=== PATIENT | female | born 1995 | race Caucasian/White ===

== ENCOUNTER 2020-08-11 10:55 | Emergency (ER) | payer OTHER, SELFPAY ==
--- NOTE | 2020-08-11 10:58 | ED.URI ---
HPI - URI/Sore Throat General Chief Complaint: Upper Respiratory Infection Stated Complaint: upper respiratory Time Seen by Provider: 08/11/20 11:00 Source: patient and RN notes reviewed History of Present Illness HPI Narrative: Patient is a 25-year-old female who presents the urgent care with complaints of a stuffy nose, sore throat, congestion and cough. Patient states that she was with her cousin on Saturday who had a sinus infection and on Saturday she woke up with the symptoms. Patient states she is also had a headache and has been taking ibuprofen and using throat spray for her symptoms. Patient denies of any known exposure to strep or Covid. Denies of any fevers, nausea, vomiting. No other acute complaints. No acute distress noted. Patient aware of the plan of care. Some parts of this dictation were generated by voice recognition software and may contain typographical and/or grammatical inaccuracies. Related Data Home Medications Medication Instructions Recorded Confirmed No Home Medications 08/11/20 08/11/20 Allergies Allergy/AdvReac Type Severity Reaction Status Date / Time No Known Allergies Allergy Verified 08/11/20 11:09 Review of Systems Review of Systems: Narrative: CONSTITUTIONAL: Denies fever, chills, or sweats. EYES: Denies visual changes, redness, or discharge. ENT: Reports of sinus congestion, postnasal drainage, sore throat CARDIOVASCULAR: Denies chest pain, palpitations, or edema. RESPIRATORY: Reports of cough without dyspnea GASTROINTESTINAL: Denies abdominal pain, nausea, vomiting, or diarrhea. GENITOURINARY: Denies dysuria or hematuria. SKIN: Denies rash or itching. MUSCULOSKELETAL: Denies back pain, joint pain, or myalgia. NEUROLOGIC: Reports of intermittent headache All other systems reviewed are negative, except as documented in HPI. [facility] Past Medical History Medical History (Updated 08/11/20 @ 11:25 by OC Shaver) Kidney stones Family History Family History Father Hypertension Family history of elevated blood lipids Family history of diabetes mellitus in first degree relative Grandparent Malignant neoplasm of prostate Social History Social History Smoking status: Never smoker Second hand tobacco smoke exposure: No Alcohol intake: never Comments At the time of my signature, I reviewed and agree with the nursing past medical, surgical, social, and family history. There is no relevant family history pertinent to the patient complaint. Exam Narrative: Exam Narrative: GENERAL: This is a well-nourished, well-developed patient, in no apparent distress. HEAD: normocephalic, atraumatic. EYES: PERRL. Sclera clear/white. Vision is grossly intact. EARS: External ears normal, auditory canals clear and without drainage, TMs normal without perforation. Hearing grossly intact. NOSE: External nose normal with no obvious nasal discharge, nares without redness, no rhinorrhea. THROAT: Mucous membranes moist, mild erythema noted to posterior pharynx with mild postnasal drainage NECK: Neck supple, non-tender without lymphadenopathy, masses or thyromegaly. CARDIOVASCULAR: Regular rate and rhythm without murmurs, gallops, or rubs. RESPIRATORY: Clear to auscultation. Breath sounds equal bilaterally. No wheezes, rales, or rhonchi. SKIN: warm, intact with no suspicious lesions or rash, good texture and turgor. NEURO: awake, alert, and oriented to person, place and time. There were no obvious focal neurologic abnormalities. EXTREMITIES: No clubbing, cyanosis, or edema. Course Vital Signs Vital signs: Vital Signs Temperature 99.7 F H 08/11/20 11:02 Pulse Rate 69 08/11/20 11:02 Respiratory Rate 16 08/11/20 11:02 Blood Pressure 125/69 08/11/20 11:02 Pulse Oximetry 100 08/11/20 11:02 Temperature 99.7 F H 08/11/20 11:02 Pulse Rate 69 08/11/20 1
[2020-08-11 11:02] VITALS: BP 125/69; PULSE 69; RESP 16; TEMP 37.6; O2SAT 100
== END 2020-08-11 11:31 | disposition home or self-care (01) ==
PROVIDERS: Emergency Provider Nurse Practitioner Family; PCP Internal Medicine
DX: J02.9 Acute pharyngitis, unspecified (principal)
CPT/HCPCS: 87081; 87880; 99213; G0463

== ENCOUNTER 2022-06-26 11:03 | Outpatient (RCR) | payer OTHER, SELFPAY ==
[2022-06-26 11:49] VITALS: BP 113/66; PULSE 68
== END 2022-07-30 18:31 | disposition home or self-care (01) ==
LOC: ANHOBOP 11:03
PROVIDERS: PCP Internal Medicine; Visit Provider Obstetrics & Gynecology
DX: O36.8330 Maternal care for abnormalities of the fetal heart rate or rhythm, third trimester, not applicable or unspecified (principal); Z3A.37 37 weeks gestation of pregnancy
CPT/HCPCS: 59025

== ENCOUNTER 2022-07-05 05:51 | Inpatient (IN) | payer OTHER, SELFPAY ==
[2022-07-05] VITALS (78 sets, daily range): BP systolic 91–135; BP diastolic 50–95; PULSE 50–137; RESP 16; TEMP 36.6–37.4; O2SAT 98–100; BMI 22.0
--- NOTE | 2022-07-05 05:51 | LDADM ---
This patient, Andreina Lima, was admitted to Labor/Delivery/Recovery 105 on 07/05/22 at 05:51. Plans for labor, pain management and were discussed with patient. Patient/family oriented to hospital policies and general routines including ID bracelet, bed and alarms, visiting hours, pain management, procedures, bathroom and other care routines, personal items, smoking policy, room service/diet and guest tray routines, security routines, and visiting hours. Patient/Family are encouraged to report perceived risks to care and to ask questions if they do not understand what they are told or what they should do. See OBIX for further documentation.
[2022-07-05 06:23] LABS: Basophils Percent Auto 0.3 % (0.2-1.2); Eosinophils Absolute Auto 0.1 K/mm3 (0-0.3); Eosinophils Percent Auto 1.5 % (0-4.4); Hematocrit 33.8 % (37.0-47.0); Hemoglobin 10.4 g/dL (12.0-15.0); Immature Granulocyte Absolute 0.04 K/mm3 (0.00-0.031); Immature Granulocyte Percent A 0.5 % (0-0.5); Lymphocytes Absolute Auto 3.61 K/mm3 (0.9-3.2); Mean Corpuscular HGB Conc 30.8 g/dl (32-36); Mean Corpuscular Hemoglobin 24.6 pg (26-34); Mean Corpuscular Volume 80.1 fl (80-100); Mean Platelet Volume 10.8 fl (7.4-10.4); Monocytes Absolute Auto 0.6 K/mm3 (0.1-0.6); Neutrophils Absolute Auto 4.2 K/mm3 (1.3-6.7); Neutrophils Percent Auto 48.7 % (45.5-73.1); Platelet Count Result 165 k/mm3 (150-375); Red Blood Count 4.22 M/mm3 (4.2-5.4); Red Cell Distribution Width 14.1 % (11.5-14.5); White Blood Count 8.6 K/mm3 (4.5-10.0)
[2022-07-05] MEDS: OXYTOCIN 30 UNITS/NS 500 ML 30 UNITS/500 ML BAG IV CONT (06:47)
[2022-07-05] MEDS: LACTATED RINGERS 1,000 ML 125 ML IV CONT ×2 (06:47→09:40)
[2022-07-05 09:02] LABS: Rapid Plasma Reagin Non-Reactive (NonReactive)
--- NOTE | 2022-07-05 12:17 | WPDANESEPPF ---
Anes - Initial Pre Proc Eval Date/Time: 07/05/22 12:17 Surgeon: Speedy Pope MD Pre Op Diagnosis: iol Patient Data Age: 27 Gender: F Height: 1.65 m Weight: 60 kg Last Vital Signs Temp 37.1 C 07/05/22 11:03 Pulse 64 07/05/22 12:16 BP 111/74 07/05/22 12:16 Pulse Ox 98 07/05/22 11:53 O2 Del Method Room Air 07/05/22 06:30 Allergies Allergy/AdvReac Type Severity Reaction Status Date / Time No Known Allergies Allergy Verified 07/04/22 08:23 Home Medications Medication Instructions Recorded Confirmed Type prenat.vits,ricardo,[id number] 1 tablet PO DAILY 11/29/21 07/05/22 History Laboratory Tests 07/05/22 06:13 WBC 8.6 K/mm3 (4.5-10.0) RBC 4.22 M/mm3 (4.2-5.4) Hgb 10.4 L g/dL (12.0-15.0) Hct 33.8 L % (37.0-47.0) MCV 80.1 fl (80-100) MCH 24.6 L pg (26-34) MCHC 30.8 L g/dl (32-36) RDW 14.1 % (11.5-14.5) Plt Count 165 k/mm3 (150-375) MPV 10.8 H fl (7.4-10.4) Immature Gran % (Auto) 0.5 % (0-0.5) Neut % (Auto) 48.7 % (45.5-73.1) Lymph % (Auto) 42.0 % (18.3-44.2) Tate % (Auto) 7.0 % (2.6-8.5) Eos % (Auto) 1.5 % (0-4.4) Baso % (Auto) 0.3 % (0.2-1.2) Lymph # (Auto) 3.61 H K/mm3 (0.9-3.2) Tate # (Auto) 0.6 K/mm3 (0.1-0.6) Eos # (Auto) 0.1 K/mm3 (0-0.3) Baso # (Auto) 0.0 K/mm3 (0.0-0.1) Abs Immat Gran (auto) 0.04 H K/mm3 (0.00-0.031) Absolute Neuts (auto) 4.2 K/mm3 (1.3-6.7) Absolute Nucleated RBC 0.0 K/mm3 (0.0-0.012) Nucleated RBC % 0.0 % (0.0-0.2) RPR Non-reactive (NonReactive) Blood Type O Positive Antibody Screen Negative Patient hx anesthesia problems: none Family hx anesthesia problems: none Results Review: All pre-operative results and documents have been reviewed as part of the pre-operative evaluation. [facility] Past Medical History Medical History Kidney stones Vaginal delivery Family History Family History Father Hypertension Family history of elevated blood lipids Family history of diabetes mellitus in first degree relative Grandparent Malignant neoplasm of prostate Social History Social History Smoking status: Never smoker Second hand tobacco smoke exposure: No Alcohol intake: never Substance use: never Substance use type: does not use Lack of Transportation: No Lack of Food: Never True Current Housing: I Have Housing Concerned About Future Housing: No Difficulty Paying Gas/Electric Bills: No Difficulty Paying for Meds: No Currently Unemployed: No Education: High School Diploma/GED Difficulty w/ Childcare or Family Care: No Spiritual care concerns: No Anes - Eval Final PreProcedure Day of Procedure 07/05/22 12:17 Patient weight: normal Neurological: alert and oriented ASA classification: II Emergent: no Anesthetic plan: proceed Anesthesia type and monitoring: regional epidural and standard monitoring Results Review: All pre-operative results and documents have been reviewed as part of the pre-operative evaluation. Informed Consent: The patient's anesthetic plan and its attendant risks and benefits were discussed with the patient/family/POA. Questions were solicited and answers provided to the satisfaction of the patient/family/POA.
[2022-07-05] MEDS: OXYTOCIN 30 UNITS/NS 500 ML 30 UNITS/500 ML BAG 125 UNITS IV CONT (12:22)
[2022-07-05] MEDS: WITCH HAZEL 40 PADS 1 PAD TOPICAL (14:25)
[2022-07-05] MEDS: BENZOCAINE 20% AER SPR (*SP) 56 GM CAN 1 SPRAY TOPICAL (14:25)
--- NOTE | 2022-07-05 14:39 | OBPPTRN ---
Patient transferred to post room #279 via wheelchair. Support person present. Oriented to unit, room, information board, rooming in, admission packet and security measures. Patient verbalizes understanding.
[2022-07-05] MEDS: IBUPROFEN 600 MG TABLET PO ×2 (15:17→21:45)
[2022-07-05] MEDS: DOCUSATE SODIUM 100 MG CAPSULE PO (15:18)
[2022-07-05] MEDS: ACETAMINOPHEN 325 MG TABLET 650 MG PO (18:42)
[2022-07-06] MEDS: ACETAMINOPHEN 325 MG TABLET 650 MG PO ×2 (01:35→08:12)
[2022-07-06 04:11] VITALS: BP 103/69; PULSE 63; RESP 16; O2SAT 100
[2022-07-06] MEDS: IBUPROFEN 600 MG TABLET PO ×2 (04:21→13:12)
[2022-07-06 05:45] LABS: Hematocrit 28.9 % (37.0-47.0); Hemoglobin 8.8 g/dL (12.0-15.0)
[2022-07-06 07:55] VITALS: BP 95/59; PULSE 61; RESP 16; TEMP 36.8; O2SAT 99
[2022-07-06 08:00] VITALS: PULSE 61; RESP 16; O2SAT 99
[2022-07-06] MEDS: DOCUSATE SODIUM 100 MG CAPSULE PO (08:08)
[2022-07-06] MEDS: POLYSACCHARIDE IRON COMPLEX 150 MG CAPSULE PO (08:09)
[2022-07-06] MEDS: MULTIVIT/MIN/PREN/FOL AC/IRON TABLET 1 TAB PO (08:12)
--- NOTE | 2022-07-06 09:17 | PM.OBPRVD ---
OB - Delivery Note Procedure Delivery date: 07/05/22 Procedure: Spontaneous vaginal deilvery Events: Other ( pylelectasis) Induction method: Per Pitocin Protocol Delivery augmentation: Rupture of Membranes Delivery monitor: External FHT Route of delivery: Episiotomy description: Midline Delivery repair: vicryl (3.0 vicryl) Specimen: No Quantitative Blood Loss (ml): 200 Anesthesia type: Epidural Disposition: Floor Complications: Mild shoulder dystocia relieved with modified stephanie, suprapubic pressure ane episiotomy. [place] Baby Date of : 07/06/22 Time of : 11:37 Weeks of gestation at delivery: 39 gender: Male Weight (pounds): 7 Weight (ounces): 1 presentation: vertex position: Left Occiput Anterior Placenta delivery description: Spontaneous Cord Vessel Description: 3 Vessels score one minute: 8 score five minutes: 9 AMG Delivery Billing Delivery Delivery: Delivery Charge
--- NOTE | 2022-07-06 09:21 | PM.IMHP ---
H&P: HPI History of Present Illness Date/Time: 07/06/22 09:21 Chief Complaint: Induction Narrative: Pt admitted for MIL, favorable cervix. PNC signficant for pylelectasis. She has been evaluated by MFM and consult with pediatric urologist. GBS neg. record reviewed no changed. Review of Systems Review of Systems: All systems reviewed & are unremarkable except as noted in HPI and below Constitutional: Constitutional: Reports no additional constitutional complaints and Denies headache(s) Eyes: Eyes: Denies spots in vision ENT: Reports system reviewed and no additional complaints, except as documented and Denies headache(s) Cardiovascular: Cardiovascular: Denies chest pain and Denies dyspnea Respiratory: Respiratory: Denies dyspnea Gastrointestinal: Gastrointestinal: Reports no additional gastrointestinal complaints Genitourinary: Genitourinary: Reports amenorrhea Musculoskeletal: Musculoskeletal: Reports no additional musculoskeletal complaints Integumentary/Breasts: Skin/Breast: Denies breast mass and Denies rash Neurologic: Denies headache(s) Psychiatric: Psychiatric: Reports no additional psychiatric complaints [facility] Past Medical History Medical History Kidney stones Vaginal delivery Family History Family History Father Hypertension Family history of elevated blood lipids Family history of diabetes mellitus in first degree relative Grandparent Malignant neoplasm of prostate Social History Social History Smoking status: Never smoker Second hand tobacco smoke exposure: No Alcohol intake: never Substance use: never Substance use type: does not use Lack of Transportation: No Lack of Food: Never True Current Housing: I Have Housing Concerned About Future Housing: No Difficulty Paying Gas/Electric Bills: No Difficulty Paying for Meds: No Currently Unemployed: No Education: High School Diploma/GED Difficulty w/ Childcare or Family Care: No Spiritual care concerns: No Meds Home Medications and Allergies Home Medications Medication Instructions Recorded Confirmed Type prenat.vits,ricardo,[id number] 1 tablet PO DAILY 11/29/21 07/05/22 History Allergies Allergy/AdvReac Type Severity Reaction Status Date / Time No Known Allergies Allergy Verified 07/04/22 08:23 Vital Signs Vital Signs - 24 hr 07/05/22 09:28 07/05/22 09:31 07/05/22 09:33 Temperature Pulse Rate 57 L Respiratory Rate Blood Pressure 123/78 Pulse Oximetry 100 100 Oxygen Delivery 07/05/22 09:34 07/05/22 09:36 07/05/22 09:38 Temperature Pulse Rate 54 L 60 56 L Respiratory Rate Blood Pressure 120/75 127/75 116/76 Pulse Oximetry 100 Oxygen Delivery 07/05/22 09:40 07/05/22 09:43 07/05/22 09:48 Temperature Pulse Rate 57 L 65 Respiratory Rate Blood Pressure 117/70 115/66 Pulse Oximetry 100 100 Oxygen Delivery 07/05/22 09:49 07/05/22 09:50 07/05/22 09:52 Temperature Pulse Rate 70 64 64 Respiratory Rate Blood Pressure 111/74 110/74 106/72 Pulse Oximetry Oxygen Delivery 07/05/22 09:53 07/05/22 09:55 07/05/22 09:57 Temperature Pulse Rate 78 78 Respiratory Rate Blood Pressure 91/63 L 131/78 Pulse Oximetry 100 Oxygen Delivery 07/05/22 09:58 07/05/22 10:01 07/05/22 10:03 Temperature Pulse Rate 59 L Respiratory Rate Blood Pressure 125/85 Pulse Oximetry 100 100 Oxygen Delivery 07/05/22 10:04 07/05/22 10:07 07/05/22 10:08 Temperature Pulse Rate 81 61 Respiratory Rate Blood Pressure 94/50 L 110/69 Pulse Oximetry 100 Oxygen Delivery 07/05/22 10:05 07/05/22 10:13 07/05/22 10:16 Temperature 98.2 F Pulse Rate 62 Respiratory Rate Blood Pressure 101/67 Pulse Oxime
--- NOTE | 2022-07-06 14:31 | WPDANESPN ---
Anes - Prog Note Post-Op Date/Time: 07/06/22 14:31 Cardiovascular status: normal Respiratory status: normal Airway patency: baseline Mental status: baseline Post-Op hydration status: normal Vital Signs: Last Vital Signs Temp 36.8 C 07/06/22 07:55 Pulse 61 07/06/22 07:55 Resp 16 07/06/22 07:55 BP 95/59 L 07/06/22 07:55 Pulse Ox 99 07/06/22 07:55 O2 Del Method Room Air 07/05/22 14:40 Pain Score (VAS): 2 I/O: Intake & Output 07/05/22 07/06/22 07/06/22 23:59 07:59 15:59 Intake Total 500 Balance 500 Laboratory Tests 07/06/22 04:10 07/06/22 04:10 Hgb 8.8 L Hct 28.9 L Post-procedural complaints: none Patient Feedback: Patient satisfied with anesthetic care.
--- NOTE | 2022-07-06 14:45 | PC.NURSE ---
Patient was given the opportunity to view the discharge video Mother & Baby Care, The First Two Weeks and to ask questions. Patient declined viewing the video and has been given the mother/baby guide for home reference.
[2022-07-07 08:35] VITALS: BP 106/66; PULSE 69; RESP 18; TEMP 37.2; O2SAT 99
--- NOTE | 2022-07-30 18:39 | PM.OBDSVD ---
DS: Admitting Diagnosis Discharge Date 07/06/22 Admitting Diagnosis Medical induction of labor. DS: Discharge Diagnosis Discharge Diagnosis (1) Delivery normal: Code(s): O80 - Encounter for full-term uncomplicated delivery Status: Acute OB - DS: Summary Hospital Course Hospital Course: She was admitted for [facility]. Delivery significant for mild shoulder dystocia. She did well . She had adequate pain control, and was ambulating without problems. She requested discharge to home on day 1. Baby was doing well. OB Procedures : Ultrasound OB Procedures Intrapartum: Spontaneous Vag Delivery and Episiotomy OB Procedures: : None Peripartum Data Delivery Method: Natural Vaginal Episiotomy description: Midline complications: none Status at Discharge Functional status at discharge: independent ambulation Time Spent with Patient Time attestation: Total time spent providing and/or coordinating discharge services: Exam Const: General: cooperative Orientation/consciousness: oriented to person, oriented to place and oriented to time HENMT: Face/Nose/Sinus: Normal external nose present Eyes: General: appearance normal, both eyes and all related structures Resp: Effort & Inspection: normal respiratory effort GI: Inspection: normal to inspection : External Female Exam: normal external appearance Other: perineum healing Skin: General skin exam: normal color Neuro: General: oriented to person, oriented to place and oriented to time Extrem: General: normal to inspection and no calf tenderness Psych: Appearance: grossly normal Mental Status: mental status grossly normal Discharge Plan Discharge Attending physician on discharge: Speedy Pope Consulting providers: Marco Cristobal; Kathia Greenberg Discharging Clinician: Speedy Pope Anticipated Discharge Date/Time: 07/06/22 12:00 Patient Disposition: Home, Self-Care Activity: july shower Diet: regular Discharge Instructions: Education: Mom and Baby Guide Given to: Mother Follow-Up: Call your delivering provider's office for an appointment to be seen in: 2 Weeks Mom and baby should come to the [facility] for the follow-up appointment. Appointment Date/Time: Thursday, July 07, 2022 at 8:00 a.m. What to expect at your follow-up visit: Blood Pressure Check Physical Assessment Call [phone] if you are unable to keep your appointment time. BREAST CARE: * Wear a snug supportive bra. * For engorgement discomfort: Breast Feeding: * Apply warm moist washcloths * Express milk as needed to relieve engorgement * Wear loose clothing Bottle Feeding: * May apply ice packs * For sore nipples: * Identify correct latch-on * Apply warm moist washcloths before and after nursing * Air dry nipples after nursing * May apply Lansinoh cream to nipples EPISIOTOMY/PERINEAL CARE: * Until bleeding stops, use your dawna bottle after urinating * Change your pad frequently throughout the day * You may take sitz baths several times a day (fill your bathtub with warm water and soak for 20 minutes.) Do NOT bathe in the water * No tub baths until seen by your physician - You may shower ACTIVITY: * Rest as much as possible. * Do not exercise or lift anything heavier than your baby (such as laundry or other children.) * Avoid stairs or driving as much as possible. * Do not put anything into the vagina. No douching, tampons, or sexual activity until seen by physician. NOTIFY PHYSICIAN IF YOU HAVE ANY QUESTIONS OR IF ANY OF THE FOLLOWING SYMPTOMS OCCUR: * If your episiotomy becomes red, swollen, or more painful than what you have experienced in the hospital. * If your vaginal bleeding becomes foul smelling. * If your vaginal bleeding becomes more heavy than a period or if
== END 2022-07-06 16:20 | disposition home or self-care (01) | DRG 807 ==
LOC: ANHLDR 05:55 → ANHOB2 15:12
PROVIDERS: Admitting Provider Obstetrics & Gynecology; PCP Internal Medicine; Visit Provider Obstetrics & Gynecology
DX: O62.3 Precipitate labor (principal); Z37.0 Single live birth; O66.0 Obstructed labor due to shoulder dystocia; O69.81X0 Labor and delivery complicated by cord around neck, without compression, not applicable or unspecified; Z3A.39 39 weeks gestation of pregnancy
CPT/HCPCS: 36415; 85014; 85018; 85025; 86592; 86850; 86900; 86901; A9270; J2590; J2795; J7120

== ENCOUNTER 2024-09-20 08:45 | Emergency (ER) | payer OTHER, SELFPAY ==
--- NOTE | ~2024-09-20 | XR_ITS ---
Right foot Technique: AP, oblique, and lateral views were obtained. Clinical History: Injury Findings: No acute fracture or dislocation is seen. Osseous alignment is anatomic. Joint spaces are p reserved without erosive or degenerative change. Soft tissues are unremarkable. Impression: Unremarkable right foot radiographs. Reviewed, dictated and finalized at location . Impression: Unremarkable right foot radiographs.
--- OUTSIDE RECORDS SUMMARY | 2024-09-20 08:48 | XMS_ITS | Clinical Summary ---
Author Organization [facility] Address [address] [place] [address] Phone Care Team Providers Care Electronic Technologist Name Role Phone Provider, None Primary Care Provider Unavailabl e Allergies No known active allergies Medications ibuprofen (MOTRIN) 600 MG Tablet Take 1 Tab by mouth every 6 hours as needed for Pain. 20 Tab 0 07/07/2015 Active Social History Tobacco Use Types Packs/Day Years Used Date Smoking Tobacco: Never Alcohol Use Standard Drinks/Week Comments No 0 (1 standard drink = 0.6 oz pur e alcohol) Comments No Sex and Gender Information Value Date Recorded Sex Assigned at Not on file Legal Sex Female 8:32 PM CDT Gender Identity Not on file Sexual Orientation Not on file Last Filed Vital Signs Vital Sign Reading Time Taken Comments Blood Pressure 104/54 05/30/2016 9:07 PM CDT Pulse 64 05/30/2016 9:07 PM CDT Temperature 37.6 C (99.6 F) 05/30/2016 9:07 PM CDT Respiratory Rate 19 05/30/2016 9:07 PM CDT Oxygen Saturation 100% 05/30/2016 9:07 PM CDT Inhaled Oxygen Concentration - - Weight 47.6 kg (105 lb) 05/30/2016 9:07 PM CDT Height 165.1 cm (5' 5) 05/30/2016 9:07 PM CDT Body Mass Index 17.47 05/30/2016 9:07 PM CDT Plan of Treatment Health Maintenance Due Date Last Done Comments Hepatitis C Virus (HCV) Screening 1997 TdaP Immunization 1997 Human Papillomavirus (HPV) Immunization (1 - 3-dose series) 2012 Hepatitis B Immunization (1 of 3 - 19+ 3-dose series) 2016 SARS-COV-2 Immunization (2023- season) 2023 Influenza Immunization (#1) 2024 Respiratory Syncytial Virus (RSV) Immunization (Adult) (1 - 1-dose 75+ series) 2072 Meningococcal Immunization (ACWY) Aged Out No longer eligible based on patient's age to complete this topic Pneumococcal Immunization Combined Aged Out No longer eligible based on patient's age to complete this topic Rotavirus Immunization Aged Out No lo nger eligible based on patient's age to complete this topic Care Teams Electronic Technologist Relationship Specialty Start Date End Date Provider, None [place] PCP - General 05/30/16
--- OUTSIDE RECORDS SUMMARY | 2024-09-20 08:48 | XMS_ITS | Referral Summary ---
Author Organization [facility] A Address [address] [place] [address] Care Team Providers Care Information Management Specialist Name Role Phone Home Coleman MD Primary Care Provider Allergies No known active allergies Medications sertraline (ZOLOFT) 50 mg tabletIndication s:Generalized Anxiety Disorder Take 1 tablet (50 mg total) by mouth daily 90 tablet 3 06/15/2024 Active terbinafine (LamiSIL) 250 mg tablet Take 1 tablet (250 mg total) by mouth daily 30 tablet 2 06/15/2024 Active Active Problems Problem Noted Date Diagnosed Date Renal abnormality of fetus on ultrasoun d 06/25/2022 Menorrhagia with regular cycle 05/24/2021 Microcytosis 05/24/2021 Generalized anxiety disorder 02/21/2021 Unexplained night sweats 10/13/2019 Assessment & Plan (10/13/2019 12:06 PM CDT): Occurring sporadically throughout the night unable to directly related to any other sx aside from anxiety. Recommended checking TSH, CBC, CMP and A1c ruling out thyroiditis, leukocytosis, DM. Treating for suspected anxiety causes in the interim in further follow-up pending results of labs Body mass index less than 19, adult 05/15/2019 Assessment & Plan (05/15/2019 5:25 PM CDT): Recommended patient to continue to increase heart healthy diet with adequate fruits, vegetables, and plenty of water along with mild-moderate daily exercise as tolerated. Resolved Problems Problem Noted Date Diagnosed Date Resolved Date Anxiety 10/13/2019 02/21/2021 Assessment & Plan (10/13/2019 12:07 PM CDT): Likely more psychologic anxiety, but given mention night sweats and thin stature, recommending looking into thyroid disease or DM for further evaluation. In the interim recommended starting on Zoloft 25 mg half tablet x1 week increasing to a full tablet thereafter along with BuSpar to use on a p.r.n. basis until maintenance therapy effective in the next 2-3 weeks. S/Es medication discussed. Reaching out to counselors, developing exercise routine were also advised. RTC in 1 month, in the interim regarding labs or certainly with any worsening in sx. Strep pharyngitis 05/15/2019 10/13/2019 Assessment & Plan (05/15/2019 5:25 PM CDT): Strep positive in office today. Patient instructed to begin Keflex 500 mg b.i.d. for 7 days. Utilize salt water gargle for discomfort. Notify office with absolutely any worsening symptoms. Patient verbalized understanding and agreed to plan of care at this time. Immunizations Immunization Administration Dates Next Due DTaP 07/21/2002, 8,1997,05/27 DTaP / HiB 08/02/1998 HPV, Quadrivalent 10/30/2011 HPV9 11/19/2014 Hep A, Ped Unspecified 09/23/2008 Hep A, Unspecified 10/24/2009 Hep B, Unspecified 1997,1997, 998 HiB 1997,1997,1997 IPV 07/21/2002,1997,1997 Influenza, Live, Intranasal, Quadrivalent 11/19/2014 Influenza, Quadrivalent, Spl it, Preservative Free, Intramuscular 11/28/2018 Influenza, Unspecified 03/16/2022(Deferr ed: Patient Refused),05/23/2021(Deferred: Patient Refused),02/21/2021(Deferred: Patient Refused - 1),12/02/2020(Deferred: Patient Refused),12/23/2019(Deferred: Patient Refused) MMR 07/21/2002,05/25/1998 Meningococcal ACWY, Unspecified 10/24/2009 Meningococcal Conjugate (Menveo) 11/19/2014 OPV 08/02/1998 Tdap 06/12/2022,11/28/2018,09/23/2008 Varicella 09/23/2008,05/25/1998 Social History Tobacco Use Types Packs/Day Years Used Date Smoking Tobacco: Never Smokeless Tobacco: Never Tobacco Cessation:Counseling Given: Not Answered Alcohol Use Standard Drinks/Week Comments Yes 0 (1 standard drink = 0.6 oz pur e alcohol) AUDIT-C Answer Date Recorded Q1: How often do you have a drink containing alcohol? Never 06/15/2024 Q2: How many drinks containi ng alcohol do you have on a typical day when you are drinking? Patient does not drink Q3: How often do you have si x or more drinks on one occasion? Never 06/15/2024 PHQ-2 Answer Date Recorded PHQ-2 Total Score (If total score is 3 or more points, staff should administer the PHQ-9) 0 06/15/2024 Comments No Sex and Gender Information Value Date Recorded Sex Assigned at Not on file Legal Sex Female 1:05 AM ACID CORRECTION HAND Gender Identity Female 02/21/2021 7:34 AM ACID CORRECTION HAND Sexual Orientation Straight 02/21/2021 7: 34 AM ACID CORRECTION HAND Last Filed Vital Signs Vital Sign Reading Time Taken Comments Blood Pressure 106/78 06/15/2024 11:07 AM CDT Pulse 59 06/15/2024 11:07 AM CDT Temperature 36.8 C (98.2 F) 03/30/2023 11:07 AM ACID CORRECTION HAND Respiratory Rate 20 06/15/2024 11:07 AM CDT Oxygen Saturation 100% 06/15/2024 11:07 AM CDT Inhaled Oxygen Concentration - - Weight 48.3 kg (106 lb 6.4 oz) 06/15/2024 11:07 AM CDT Height 167.6 cm (5' 5.98) 06/15/2024 11:07 AM C DT Body Mass Index 17.18 06/15/2024 11:07 AM CDT Plan of Treatment Not on file Insurance [facility] [employer] [facility] Care Teams Information Management Specialist Relationship Specialty Start Date End Date Home Coleman MD PCP - General Internal Medicine 05/15/19
--- OUTSIDE RECORDS SUMMARY | 2024-09-20 08:48 | XMS_ITS | Clinical Summary ---
Author Organization [facility] Address [address] [place] [phone] Phone Care Team Providers Care Equipment Mechanic Specialist Name Role Phone Unavailable Primary Care Provider Unavailabl e Social History Tobacco Use Types Packs/Day Years Used Date Smoking Tobacco: Never Assessed Comments Unknown Sex and Gender Information Value Date Recorded Sex Assigned at Not on file Legal Sex Female 1:43 PM CDT Gender Identity Not on file Sexual Orientation Not on file Plan of Treatment Health Maintenance Due Date Last Done Comments CERVICAL CANCER SCREENING 2018 HPV/Cotest (21-29) 2018 PAP SMEAR 2018 INFLUENZA VACCINE (#1) 2024 11/28/2018, 2014 DTAP/TDAP/TD VACCINES (8 - T d or Tdap) 11/28/2028 11/28/2018, 09/23/2008, 07/21/2002, Additional history exists HEPATITIS B VACCINES Completed 1997, 1997, 1997 HPV VACCINES Completed 11/19/2014, 10/30/2011 Insurance [employer] HMO [facility] MEDICAID
--- OUTSIDE RECORDS SUMMARY | 2024-09-20 08:48 | XMS_ITS | Clinical Summary ---
Author Organization [facility] Address [address] [place] [address] Care Team Providers Care Tracer Powder Blender Name Role Phone Unavailable Primary Care Provider Unavailabl e Source Comments [facility],non-owned Affiliates and Associated Physician Practices is amultiple site organization consisting of ambulatory clinics and hospital sitesin [place], [place], [place] and [place]. This disclosure is being madepursuant to the Care Everywhere program and may not contain all information available regarding this patient. Last updated 17.[facility] [employer] Allergies No known active allergies Immunizations Immunization Administration Dates Next Due INFLUENZA VACCINE, QUADR. (F LUZONE; FLULAVAL; FLUARIX; AFLURIA QUADRIVALENT; 6MO+), 0.5 ML (IIV4) 11/28/2018 TDAP (7yrs+) 11/28/2018 Social History Tobacco Use Types Packs/Day Years Used Date Smoking Tobacco: Never Assessed Comments Unknown Sex and Gender Information Value Date Recorded Sex Assigned at Not on file Legal Sex Female 7:50 PM CDT Gender Identity Not on file Sexual Orientation Not on file Plan of Treatment Health Maintenance Due Date Last Done Comments HIV SCREENING 2012 HEPATITIS C SCREENING 03/27/2015 HEPATITIS B VACCINE (1 of 3 - 19+ 3-dose series) 2016 COVID-19 VACCINE (2023-2 5 season) 2023 DEPRESSION SCREENING 03/04/2024 HPV VACCINE (1 - 3-dose SCDM series) 2024 INFLUENZA VACCINE (#1) 2024 11/28/2018 DTAP/TDAP/TD VACCINES (2 - T d or Tdap) 11/28/2028 11/28/2018 ZOSTER VACCINE (1 of 2) 2047 HIB VACCINE Aged Out No longer eligi ble based on patient's age to complete this topic MENINGOCOCCAL (Group B) VACC INE SHARED DECISION-MAKING Aged Out No longer eligibl e based on patient's age to complete this topic MENINGOCOCCAL GROUPS A/C/Y/W VACCINE Aged Out No longer eligible b ased on patient's age to complete this topic PNEUMOCOCCAL VACCINE Aged Out No long er eligible based on patient's age to complete this topic Insurance [facility]
--- OUTSIDE RECORDS SUMMARY | 2024-09-20 08:48 | XMS_ITS | Clinical Summary ---
Author Organization [facility] Medical Office Building A Address [address] [place] [address] Care Team Providers Care Upholstery Department Supervisor Name Role Phone Home Coleman MD Primary [...] on file Legal Sex Female 1:05 AM JOINT FILLER Gender Identity Female 02/21/2021 7:34 AM JOINT FILLER Sexual Orientation Straight 02/21/2021 7: 34 AM JOINT FILLER Obstetrics History Para Term AB IAB SAB Ectopic Multiple Livin g Live Births 1 Date Outcome GA Total Labor Labor/2nd/3rd Weight Sex Type Anes PTL Fatoumata A1 A5 Name Clin Last Filed Vital Signs Vital Sign Reading Time Taken Comments Blood Pressure 106/78 06/15/2024 11:07 AM CDT Pulse 59 06/15/2024 11:07 AM CDT Temperature 36.8 C (98.2 F) 03/30/2023 11:07 AM JOINT FILLER Respiratory Rate 20 06/15/2024 11:07 AM CDT Oxygen Saturation 100% 06/15/2024 11:07 AM CDT Inhaled Oxygen Concentration - - Weight 48.3 kg (106 lb 6.4 oz) 06/15/2024 11:07 AM CDT Height 167.6 cm (5' 5.98) 06/15/2024 11:07 AM C DT Body Mass Index 17.18 06/15/2024 11:07 AM CDT Plan of Treatment Health Maintenance Due Date Last Done Comments Cervical Cancer Screening 1997 Hepatitis C Screening 1997 Regular Well Visit/Exam 18-64 02/21/2022 02/21/2021 Influenza Vaccine (Season Ended) 2024 11/28/2018, 11/19/2014 Depression Screening 06/15/2025 06/15/2024, 03/16/2022, 05/23/2021, Additional history exists DTaP/Tdap/Td Vaccine (9 - Td or Tdap) 06/12/2032 06/12/2022, 11/28/2018, 09/23/2008, Additional history exists Hepatitis B Screening Completed 1997 , 1997, 1997 Varicella Vaccines Completed 09/23/2008, 05/25/1998 HPV Vaccines Completed 11/19/2014, 10/30/2011 Pneumococcal vaccine <65 Aged Out No longer eligible based on patient's age to complete this topic Insurance [facility] [employer]IGNA [facility] Care Teams Upholstery Department Supervisor Relationship Specialty Start Date End Date Home Coleman MD PCP - General Internal Medicine 05/15/19
[2024-09-20 08:52] VITALS: BP 125/78; PULSE 90; RESP 16; TEMP 36.8; O2SAT 100
--- NOTE | 2024-09-20 08:57 | ED.LOWEXIN ---
HPI - Extremity Injury (Lower) General Chief Complaint: Extremity Injury, Lower Stated Complaint: Right Ankle Injury Time Seen by Provider: 09/20/24 09:00 Source: patient Mode of arrival: ambulatory Limitations: no limitations History of Present Illness HPI Narrative: 29 y/o female presented for c/o right foot pain x2 days. States she rolled the foot/ankle when she stood up while the foot was asleep. Endorses swelling and bruising to the outer side of the foot. Has been walking but minimally on the foot. Denies numbness, tingling weakness or deformity. Took ibuprofen and applied ice. Related Data Home Medications ?Medication ?Instructions ?Recorded ?Confirmed ?Last Taken ?Type No Home Medications 09/20/24 09/20/24 Unknown History Allergies Allergy/AdvReac Type Severity Reaction Status Date / Time No Known Allergies Allergy Verified 09/20/24 09:01 Review of Systems Review of Systems: CONSTITUTIONAL: Denies body aches, fever, chills EYES: Denies visual changes ENT: Denies rhinorrhea, congestion CARDIOVASCULAR: Denies chest pain, palpitations, or edema. RESPIRATORY: Denies cough or dyspnea. SKIN: Denies rash, itching, or wounds. MUSCULOSKELETAL: reports right foot pain, swelling NEUROLOGIC: Denies headache, numbness, tingling, or weakness. All systems reviewed & are unremarkable except as noted in HPI and below PMFSH Past Medical History Medical History Kidney stones Vaginal delivery Family History Family History Father Hypertension Family history of elevated blood lipids Family history of diabetes mellitus in first degree relative Grandparent Malignant neoplasm of prostate Social History Social History Smoking status: Never smoker Second hand tobacco smoke exposure: No Alcohol intake: never Substance use: never Substance use type: does not use Lack of Transportation: No Lack of Food: Never True Current Housing: I Have Housing Concerned About Future Housing: No Difficulty Paying Gas/Electric Bills: No Difficulty Paying for Meds: No Currently Unemployed: No Education: High School Diploma/GED Difficulty w/ Childcare or Family Care: No Spiritual care concerns: No Comments At time of signature, I have reviewed and agree with nursing past medical, surgical, social and family history unless otherwise noted. Please see nursing chart for further information. There is no relevant family history pertinent to the presenting complaint Exam Narrative: GENERAL: Well-appearing, well-nourished, and in no acute distress. CHEST: Speaks in full sentences. No respiratory distress. HEART: Regular rate and rhythm. Normal and equal peripheral pulses. EXTREMITIES: right lateral foot with moderate swelling and bruising, tender 5th metatarsal. no ankle swelling. Foot has normal strength and sensation, normal range of motion at ankle. No obvious deformity; pulse palpable and equal bilaterally, skin warm, dry, pink. Capillary refill less than 3 seconds. SKIN: Warm, dry, no rash. NEURO: Alert and oriented x3. PSYCH: Normal mood and affect Course Course Emergency Course: Patient is aware of diagnosis, understands and agrees to treatment plan. Anticipatory guidance given. Patient agrees to follow-up as directed and is aware of reasons to seek care at the emergency department. Portions of this record may have been created with voice recognition software Level of Care: Express Care Visit Vital Signs Vital signs: Vital Signs Temperature 98.3 F 09/20/24 08:52 Pulse Rate 90 09/20/24 08:52 Respiratory Rate 16 09/20/24 08:52 Blood Pressure 125/78 09/20/24 08:52 Pulse Oximetry 100 09/20/24 08:52 Oxygen Delivery Room Air 09/20/24 08:52 Temperature 98.3 F 09/20/24 08:52 Pulse Rate 90 09/20/24 08:52 Respiratory Rate 16 09/20/24 08:52 Blood Pressure 125/78 09/20/24 08:52 Pulse Oximetry 100 09/20/24 08:52 Oxygen Delivery Room Air 09/20/24 08:52 Reviewed MDM - Extremity Injury (Lower) MDM Narrative Medical decision making narrative: Discussed physical exam findings and xray. RADHA applied. Advised supportive measures and signs/symptoms to go to the ER. Pt is appropriate for outpt treatment and f/u. Differential Diagnosis Differential diagnosis: Likely ankle sprain and strain, ankle fracture and other (foot fracture foot sprain foot contusion) Imaging Data Radiologist's impression: Patient: Andreina Lima : 1995 MR#: [id number] Age: 29 Acct:[id number] Loc: [facility] ADM Date: 09/20/24Attending Dr: Right foot Technique: AP, oblique, and lateral views were obtained. Clinical History: Injury Findings: No acute fracture or dislocation is seen. Osseous alignment is anatomic. Joint spaces are preserved without erosive or degenerative change. Soft tissues are unremarkable. Impression: Unremarkable right foot radiographs. Discharge Plan Discharge Clinical Impression: Foot sprain Patient Disposition: Home Condition: Stable Instructions: Foot Sprain (ED) Additional Instructions: Rest and elevate the right leg; bear weight as tolerated Apply ice 15-20 minute intervals several times a day Keep it wrapped with RADHA as needed to reduce swelling Motrin 600mg every 8 hours, alternate with Tylenol 1000mg every 8 hours as needed Follow up with your primary care provider as needed Go to the ER for worsening symptoms or concerns Patient Language: Wallisian Prescriptions: No Action No Home Medications Follow-up/Referrals: Jared,Home Garner MD [Primary Care Provider] - Time of Disposition: 09:53
== END 2024-09-20 09:55 | disposition home or self-care (01) ==
PROVIDERS: Emergency Provider Nurse Practitioner Family; PCP Internal Medicine
DX: S93.601A Unspecified sprain of right foot, initial encounter (principal); X50.9XXA Other and unspecified overexertion or strenuous movements or postures, initial encounter
CPT/HCPCS: 73630; 99213; G0463